=== PATIENT | male | born 1965 | race Asian ===

== ENCOUNTER 2017-03-30 08:14 | Outpatient (CLI) | payer BC ==
[2017-03-30 09:06] LABS: POTASSIUM 3.7 mmol/L (3.6-5.2); SODIUM 137 mmol/L (136-145)
== END 2017-03-30 09:15 | disposition home or self-care (01) ==
LOC: LABW 08:14
PROVIDERS: Family Medicine
DX: I10 Essential (primary) hypertension (principal); Z12.5 Encounter for screening for malignant neoplasm of prostate
CPT/HCPCS: 36415; 80053; 80061; 84153; 84443

== ENCOUNTER 2023-02-08 14:06 | Emergency (ER) | payer BC ==
[~2023-02-08] VITALS: Ht 165.1 cm; Wt 86.2 kg
[2023-02-08 14:15] VITALS: TEMP 98.9
[2023-02-08 15:21] LABS: PLATELET COUNT 230 K/uL (142-355)
[2023-02-08 16:55] VITALS: BP 150/84
== END 2023-02-08 16:55 | disposition home or self-care (01) ==
LOC: ED 14:06
PROVIDERS: Family Medicine
DX: L03.115 Cellulitis of right lower limb (principal)
CPT/HCPCS: 85027; 87040; 87070; 87077; 87185; 87186; 87205; 96372; 99283; J1100